=== PATIENT | female | born 1945 | race Caucasian/White ===

== ENCOUNTER → 2018-04-01 | Day surgery (SDC) | payer MEDICARE, BC ==
[2018-04-01] MEDS: Lactated Ringers 1,000 ML IV SCH (08:17)
[2018-04-01 09:52] VITALS: BP 112/65
--- NOTE | 2018-04-01 15:00 | OR ---
DATE OF OPERATION: 04/01/2018 PREOPERATIVE DIAGNOSIS: POSITIVE COLOGUARD EXAM. POSTOPERATIVE DIAGNOSIS: POSITIVE COLOGUARD EXAM. SURGEON: Pedro Ramirez MD PROCEDURE: TOTAL COLONOSCOPY. ANESTHESIA: Conscious sedation with MAC. SPECIMEN: None. FINDINGS: A few scattered sigmoid diverticula, otherwise, normal. INDICATIONS: This 72-year-old female has a positive Cologuard. The recommendation is followup colonoscopy as needed for symptoms. DESCRIPTION OF PROCEDURE: After adequate preparation, colonoscope was inserted into the rectum. This was easily passed all the way to the cecum. Confirmation of the cecum was made by visualization of the ileocecal valve. A light shined through the right lower quadrant and by palpation, the bowel prep was good. On withdrawal of the scope, the only abnormality noted was sigmoid diverticula. There are no masses, polyps, bleeding sites, or colitis. The rectal examination was also normal. Air was suctioned from the colon and the scope was removed. SEB/CHARY /[id number]
== END ==
LOC: CC.SDS 07:41
PROVIDERS: ATTEND Surgery
DX: R19.5 Other fecal abnormalities (principal); K57.30 Diverticulosis of large intestine without perforation or abscess without bleeding; K21.9 Gastro-esophageal reflux disease without esophagitis; I10 Essential (primary) hypertension; J30.9 Allergic rhinitis, unspecified; C64.9 Malignant neoplasm of unspecified kidney, except renal pelvis; M10.9 Gout, unspecified; M19.90 Unspecified osteoarthritis, unspecified site; M81.8 Other osteoporosis without current pathological fracture; M85.80 Other specified disorders of bone density and structure, unspecified site; E55.9 Vitamin D deficiency, unspecified; Z79.82 Long term (current) use of aspirin; Z79.899 Other long term (current) drug therapy; Z88.2 Allergy status to sulfonamides; Z87.891 Personal history of nicotine dependence
CPT/HCPCS: J7120